=== PATIENT | female | born 1980 | race Caucasian/White ===

== ENCOUNTER → 2019-10-06 09:32 | Emergency (ER) | payer SELFPAY ==
[2019-10-06 09:57] LABS: Influenza B Molecular POSITIVE (Negative)
[2019-10-06 10:42] VITALS: BP 136/79
--- NOTE | 2019-10-06 10:58 | ED ---
Influenza-Like Illness - HPI Summary HPI Summary: This patient is a 39-year-old otherwise healthy female presenting to the ED with 2 day history of cough, congestion, headache, body aches and diarrhea. Patient has subjective fevers, sweats or chills. Patient denied getting the flu shot this year. She states she is otherwise healthy, however obese. She takes no medications daily. She states she has been taking Tylenol and ibuprofen with good relief. She continues to have a cough and congestion, however it helps body aches. She denies any known sick contacts. - History of Current Complaint Chief Complaint: EDFluSymptoms Time Seen by Provider: 10/06/19 09:37 Hx Obtained From: Patient Onset/Duration: Gradual Onset Severity: Moderate Associated Signs & Symptoms: Fever, F/C, Myalgia, Cough, Sore Throat, Headache, Diarrhea Related Hx: Possible Flu/Infectious Exposure - Allergy/Home Medications Allergies/Adverse Reactions: Allergies Allergy/AdvReac Type Severity Reaction Status Date / Time cortisone Allergy Tachycardia Verified 10/06/19 09:36 PMH/Surg Hx/FS Hx/Imm Hx Previously Healthy: Yes - Immunization History Hx Pertussis Vaccination: No Immunizations Up to Date: Yes Infectious Disease History: No Infectious Disease History: Denies: Traveled Outside the [place] in Last 30 Days - Social History Occupation: Employed Full-time Lives: Alone Alcohol Use: None Hx Substance Use: No Substance Use Type: Reports: None Hx Tobacco Use: No Smoking Status (MU): Never Smoked Tobacco Review of Systems Positive: Fever, Chills, Fatigue, Skin Diaphoresis Negative: Diplopia, Drainage Positive: Sore Throat, Ear Ache Negative: Palpitations, Chest Pain Positive: Cough. Negative: Shortness Of Breath Positive: Diarrhea. Negative: Vomiting, Nausea Positive: Myalgia. Negative: Arthralgia Neurological/Mental Status: Negative All Other Systems Reviewed And Are Negative: Yes Physical Exam Triage Information Reviewed: Yes Vital Signs On Initial Exam: Initial Vitals Temp Pulse Resp BP Pulse Ox 97.3 F 87 18 127/88 98 10/06/19 09:33 10/06/19 09:33 10/06/19 09:33 10/06/19 09:33 10/06/19 09:33 Vital Signs Reviewed: Yes Appearance: Positive: Ill-Appearing Skin: Positive: Warm, Skin Color Reflects Adequate Perfusion Head/Face: Positive: Normal Head/Face Inspection Eyes: Positive: EOMI, SADE, Conjunctiva Clear ENT: Positive: Pharynx normal, Uvula midline. Negative: Pharyngeal erythema, Nasal congestion, Nasal drainage, Tonsillar swelling, Tonsillar exudate, Hoarse voice, Dental tenderness, Sinus tenderness Neck: Positive: Supple, Nontender, No Lymphadenopathy Respiratory/Lung Sounds: Positive: Clear to Auscultation, Breath Sounds Present Cardiovascular: Positive: RRR, Pulses are Symmetrical in both Upper and Lower Extremities Musculoskeletal: Positive: Normal, Strength/ROM Intact Neurological: Positive: Sensory/Motor Intact, Alert, Oriented to Person Place, Time, Speech Normal Psychiatric: Positive: Normal, Affect/Mood Appropriate AVPU Assessment: Alert Procedures - Sedation Patient Received Moderate/Deep Sedation with Procedure: No Diagnostics - Vital Signs Vital Signs Temp Pulse Resp BP Pulse Ox 10/06/19 10:41 97.5 F 72 18 136/79 96 10/06/19 09:33 97.3 F 87 18 127/88 98 - Laboratory Lab Results: Lab Results 10/06/19 Range/Units 09:41 Influenza A (Rapid) Not Reportable Influenza B (Rapid) Positive H (Negative) Lab Statement: Any lab studies that have been ordered have been reviewed, and results considered in the medical decision making process. Flu Symptom Course/Dx - Course Course Of Treatment: This patient is evaluated for influenza-like symptoms. Influenza swab positive for flu B. He, RRR. Patient does appear somewhat ill, however nondiaphoretic. Vital signs are stable. She does have a cough. She will be given cough medication, Zofran and an albuterol inhaler for shortness of breath related to her flulike symptoms. - Diagnoses Differential Diagnosis/HQI/PQRI: Positive: Influenza, Pneumonia, Upper Respiratory Infection Provider Diagnoses: Influenza Discharge ED - Sign-Out/Discharge Documenting (check all that apply): Patient Departure - Discharge Plan Condition: Stable Disposition: HOME Prescriptions: Albuterol HFA INHALER* [Ventolin HFA Inhaler*] 1 puff INH Q4H PRN #1 mdi PRN Reason: Shortness Of Breath GuaiFENesin DM 100 mg/10 mg [Robitussin DM 100 mg/10 mg in 5 ml] 10 ml PO Q4H PRN #180 ml MDD 60 PRN Reason: Cough Ondansetron ODT TAB* [Zofran 4 MG Odt TAB*] 4 mg PO Q6H PRN #12 tab.odt MDD 4 PRN Reason: Nausea Patient Education Materials: Influenza (ED) Forms: *Work Release Referrals: [facility] [Outside] Additional Instructions: Humidifier inthe home may help Tylenol 650mg four times daily Ibuprofen 600mg four times daily Fluids Rest Albuterol inhaler as needed Rest as much as possible Robitussin for cough 10ml every 4 hours Zofran up to 4 times daily for nausea - Billing Disposition and Condition Condition: STABLE Disposition: Home - Attestation Statements Provider Attestation: I was available for consult. This patient was seen by the DORON. The patient was not presented to, seen by, or examined by me. Ricki Flower MD
== END | disposition home or self-care (01) ==
LOC: ED 09:32
DX: J11.1 Influenza due to unidentified influenza virus with other respiratory manifestations (principal); R50.9 Fever, unspecified; R05 Cough; R51 Headache; Z88.2 Allergy status to sulfonamides
CPT/HCPCS: 99282